=== PATIENT | female | born 1965 | race Caucasian/White ===

== ENCOUNTER 2017-11-23 07:10 | Emergency (ER) | payer SELFPAY ==
[2017-11-23 07:10] VITALS: BP 138/100; PULSE 120; RESP 18; TEMP 36.4; O2SAT 99; BMI 21.0
--- NOTE | 2017-11-23 07:36 | ED.DCSUM_ITS ---
- ER Visit Summary Date of Service: 11/23/17 Chief Complaint: TMJ pain History of Present Illness: The patient is a 52 F with bilateral TMJ pain, worse on the left. This has been going on for several days. She had this before. It was triggered by stress. She is taking Tylenol and Motrin. No other associated symptoms. Physical Examination: Hypertensive otherwise vitals unremarkable. Inspection normal. Alert and oriented. Skin appears unremarkable. She has bilateral TMJ region tenderness to palpation. No trismus. Good range of motion. She does have some shotty anterior cervical lymphadenopathy bilaterally. No meningeal signs. Airway intact. Oropharynx unremarkable. Dentition and gums normal. The remainder of her exam is unremarkable. Test Results: None indicated Emergency Department Course and Treatment: Patient received naproxen and prednisone here. She was given 1 tablet of [place] here. We will not prescribe controlled substances for this. She was given a prescription for naproxen and prednisone. Follow-up with primary care. Treatment Plan: As above Disposition: Discharged Impression: 1. Bilateral TMJ pain This note was generated with Subtextual dictation software. It may contain incorrect words, spelling, and punctuation that were not noted in review of the chart prior to signing ED Disposition - Plan for ED Patient: Chief Complaint: Dental Referrals: Care Physician,No Primary [Primary Care Provider] -
--- NOTE | 2017-11-23 07:36 | ED.DEP ---
ED Disposition - Plan for ED Patient: Chief Complaint: Dental Instructions: ED TMJ Syndrome Prescriptions: Prednisone 40 mg PO DAILY #16 tab Naproxen [Naprosyn] 500 mg PO BID #14 tab Referrals: Tay Henriquez DO [NON CLINICAL AFFILIATE] -
[2017-11-23] MEDS: Naproxen 500 MG Tablet PO (07:52)
[2017-11-23] MEDS: HYDROcodone Bitartrate/Apap 5/325 Tablet PO (07:52)
[2017-11-23] MEDS: predniSONE 20 MG Tablet 40 MG PO (07:52)
== END 2017-11-23 07:54 | disposition home or self-care (01) ==
LOC: ED 07:34
PROVIDERS: Emergency Provider Emergency Medicine
DX: M26.623 Arthralgia of bilateral temporomandibular joint (principal); Z72.0 Tobacco use
CPT/HCPCS: 99283

== ENCOUNTER 2017-12-22 12:04 | Emergency (ER) | payer SELFPAY ==
[2017-12-22 12:05] VITALS: BP 148/96; PULSE 99; RESP 18; TEMP 36.6; O2SAT 99; BMI 20.5
[2017-12-22] MEDS: Tetracaine 0.5% Ophthalmic Bottle 1 DRP LEFT EYE (12:52)
[2017-12-22] MEDS: Fluorescein 1 MG STRIP 1 STRIP LEFT EYE (12:52)
--- NOTE | 2017-12-22 14:13 | ED.VISSUMM ---
- ER Visit Summary Date of Service: 12/22/17 Chief Complaint: Blurred vision after blunt trauma 2 days ago History of Present Illness: The patient is a 52 F who presents after blunt trauma to the left orbit 2 days ago. States she was on the floor. And table tipped and struck her. She reports blurred vision. She complains of photophobia. She denies any double vision. She denies headache, nausea or vomiting. She denies neck pain, paresthesia anesthesia or motor weakness present at time of the injury. She denies muffled hearing or ringing in her ears. She has a Mitchell opening or closing her mouth. She denies symptoms of malocclusion. She denies pain to her nose, swelling or deformity. Physical Examination: There is infra orbital ecchymosis left side. Pupils equal round reactive. Extra muscle intact. Sclerae anicteric. Conjunctive is not injected. There is no subconjunctival hemorrhage. There is no step-off with palpation infraorbital rim. There is no hyperesthesia the infraorbital nerve. There is no evidence of entrapment. There is no CSF otorrhea or rhinorrhea. Negative geiger sign sign or raccoon sign. No hemotympanum. No septal hematoma or deviation. No TMJ tenderness. Trachea midline. No cervical spine tenderness. GCS is 15. Patient is alert and oriented ?3. Motor is 5/5. Sensation is intact. DTRs are symmetric without clonus or Babinski. Cranial nerves II through XII are intact. Finger to nose to finger was performed adequately. Attempt to use slit lamp was difficult because of malfunctioning slit-lamp. There is no cobalt light. There is no hyphema noted anterior chamber. There is no flare or cells. There was no obvious defect of the cornea. Funduscopic exam did not reveal any papilledema. Test Results: Slit-lamp exam limited. Slit-lamp exam did not reveal any significant abnormality Emergency Department Course and Treatment: Visual acuity was 20/100 right 20/200 left 20/100 both. Treatment Plan: Eye exam since patient vision is not normal bilaterally Disposition: Discharge to home Impression: 1. Left periorbital contusion 2. Myopia This note was generated with Tipp24ation software. It may contain incorrect words, spelling, and punctuation that were not noted in review of the chart prior to signing ED Disposition - Plan for ED Patient: Disposition: Home or Assisted Living Chief Complaint: Eye Problem Instructions: ED Contusion Face, Understanding Vision Problems Referrals: Care Physician,No Primary [Primary Care Provider] - Additional Instructions: Your vision in both eyes is abnormal. You should follow-up with an civil draftsman or physical therapist technician for refractory exam since you will need glasses.
--- NOTE | 2017-12-22 14:19 | ED.DCSUM_ITS ---
- ER Visit Summary Date of Service: 12/22/17 Chief Complaint: Blurred vision after blunt trauma 2 days ago History of Present Illness: The patient is a 52 F who presents after blunt trauma to the left orbit 2 days ago. States she was on the floor. And table tipped and struck her. She reports blurred vision. She complains of photophobia. She denies any double vision. She denies headache, nausea or vomiting. She denies neck pain, paresthesia anesthesia or motor weakness present at time of the injury. She denies muffled hearing or ringing in her ears. She has a Mitchell opening or closing her mouth. She denies symptoms of malocclusion. She denies pain to her nose, swelling or deformity. Physical Examination: There is infra orbital ecchymosis left side. Pupils equal round reactive. Extra muscle intact. Sclerae anicteric. Conjunctive is not injected. There is no subconjunctival hemorrhage. There is no step-off with palpation infraorbital rim. There is no hyperesthesia the infraorbital nerve. There is no evidence of entrapment. There is no CSF otorrhea or rhinorrhea. Negative geiger sign sign or raccoon sign. No hemotympanum. No septal hematoma or deviation. No TMJ tenderness. Trachea midline. No cervical spine tenderness. GCS is 15. Patient is alert and oriented ?3. Motor is 5/5. Sensation is intact. DTRs are symmetric without clonus or Babinski. Cranial nerves II through XII are intact. Finger to nose to finger was performed adequately. Attempt to use slit lamp was difficult because of malfunctioning slit-lamp. There is no cobalt light. There is no hyphema noted anterior chamber. There is no flare or cells. There was no obvious defect of the cornea. Funduscopic exam did not reveal any papilledema. Test Results: Slit-lamp exam limited. Slit-lamp exam did not reveal any significant abnormality Emergency Department Course and Treatment: Visual acuity was 20/100 right 20/ 200 left 20/100 both. Treatment Plan: Eye exam since patient vision is not normal bilaterally Disposition: Discharge to home Impression: 1. Left periorbital contusion 2. Myopia This note was generated with [employer]örder[employer] software. It may contain incorrect words, spelling, and punctuation that were not noted in review of the chart prior to signing ED Disposition - Plan for ED Patient: Disposition: Home or Assisted Living Chief Complaint: Eye Problem Instructions: ED Contusion Face, Understanding Vision Problems Referrals: Care Physician,No Primary [Primary Care Provider] - Additional Instructions: Your vision in both eyes is abnormal. You should follow-up with an cotton classer aide or territory sales representative for refractory exam since you will need glasses.
[2017-12-22 14:29] VITALS: PULSE 94; RESP 17; O2SAT 99
== END 2017-12-22 14:31 | disposition home or self-care (01) ==
PROVIDERS: Emergency Provider Emergency Medicine
DX: S00.12XA Contusion of left eyelid and periocular area, initial encounter (principal); H52.12 Myopia, left eye; R40.2410 Glasgow coma scale score 13-15, unspecified time; W22.8XXA Striking against or struck by other objects, initial encounter; Y93.9 Activity, unspecified; Y92.9 Unspecified place or not applicable; Z86.2 Personal history of diseases of the blood and blood-forming organs and certain disorders involving the immune mechanism; Z72.0 Tobacco use
CPT/HCPCS: 99283

== ENCOUNTER 2018-01-14 21:52 | Emergency (ER) | payer SELFPAY ==
[2018-01-14 21:53] VITALS: BP 171/128; PULSE 102; RESP 24; TEMP 36.7; O2SAT 100; BMI 19.5
[2018-01-14] MEDS: oxyCODONE 5 MG Tablet PO (21:59)
[2018-01-14 22:45] VITALS: BP 165/116; PULSE 82; RESP 18; O2SAT 100
--- NOTE | 2018-01-14 22:54 | ED.VISSUMM ---
- ER Visit Summary Date of Service: 01/14/18 Chief Complaint: Injury left ankle. History of Present Illness: The patient is a 52 F who presents with plantar inversion mechanism injury that occurred 6 hours prior to presentation. Her foot went into a hole. She complains of pain over the lateral malleolus. She states weightbearing or movement causes increased pain. She denies paresthesia, anesthesia motor weakness. She has no other complaints. Physical Examination: There is pain palpation over the lateral and medial malleolus. The swelling over the lateral malleolus. There is no laxity with drawer testing. DP pulses palpable. There is no pain the patient the base of the fifth metatarsal. Test Results: Three-view x-ray of the ankle was interpreted by me as negative for fracture, subluxation or dislocation. Emergency Department Course and Treatment: X-ray was obtained to evaluate for fracture. Patient was given a oral tablet of oxycodone for her discomfort. Suspicion was high for fracture. Treatment Plan: Since there is no evidence of fracture Aircast anti-inflammatories. Disposition: Discharged to home Impression: Acute ankle sprain left anterior talofibular ligament This note was generated with Circular dictation software. It may contain incorrect words, spelling, and punctuation that were not noted in review of the chart prior to signing ED Disposition - Plan for ED Patient: Disposition: Home or Assisted Living Chief Complaint: Lower Extremity Injury Instructions: ED Sprain Ankle W X Ray Prescriptions: Naproxen [Naprosyn] 500 mg PO BID #14 tab Referrals: Care Physician,No Primary [Primary Care Provider] - Angelica Becker [NON-STAFF] - 10-14 Days if not better
[2018-01-14 23:31] VITALS: PULSE 75; RESP 18; O2SAT 96
== END 2018-01-14 23:33 | disposition home or self-care (01) ==
PROVIDERS: Emergency Provider Emergency Medicine
DX: S93.492A Sprain of other ligament of left ankle, initial encounter (principal); X50.1XXA Overexertion from prolonged static or awkward postures, initial encounter; Y93.89 Activity, other specified; Y92.9 Unspecified place or not applicable
CPT/HCPCS: 73610; 99285

== ENCOUNTER 2019-06-03 01:11 | Emergency (ER) | payer SELFPAY ==
[2019-06-03 01:12] VITALS: BP 134/82; PULSE 138; RESP 24; TEMP 36.9; O2SAT 92; BMI 18.4
[2019-06-03] MEDS: HYDROcodone Bitartrate/Apap 5/325 Tablet PO (01:24)
--- NOTE | 2019-06-03 01:40 | RAD_ITS ---
HISTORY: PT TWISTED RT KNEE WALKING, PAIN, UNABLE TO STRAIGHTEN LEG, UNABLE TO STAND ADDITIONAL HISTORY: None provided. TECHNIQUE: Right knee 2 views Number of images including paperwork: 2 COMPARISON: None FINDINGS: BONES: No acute fracture. Mineralization appears decreased. JOINTS: No subluxation. SOFT TISSUES: No distinct foreign body. RAD/Knee 1 or 2 Views IMPRESSION: No acute osseous abnormality. at 0254 Reported and signed by: Krissy Kapoor MD Electronically Signed: Krissy Kapoor MD at 2:53 EST Tel , Service support ,
--- NOTE | 2019-06-03 01:50 | ED.VIS.LOWEX ---
History of Present Illness Chief Complaint: Lower Extremity Injury Informant: Patient Occurred: Today Onset: Today Context: Sudden Onset Timing: Continuous Quality of Pain: Sharp Narrative: Patient is a 53-year-old female with history of patella dislocation presenting with sudden onset of right knee pain. Patient states she was trying to stand up when she suddenly had sharp and excruciating pain. She had a deformity of her kneecap. She been unable to walk. Patient is currently staying at [facility]. EMS was called and she was brought to the emergency room. Patient denies any injury or any other complaints. She denies any numbness or tingling. Past Medical History - Allergies and Home Meds Allergies/Adverse Reactions: Allergies ciprofloxacin [From Cipro] Allergy (Verified 01/14/18 21:55) Rash Penicillins Allergy (Verified 01/14/18 21:55) Shortness of breath acetaminophen [From Darvocet-N 100] Adverse Reaction (Verified 01/14/18 21:55) Nausea ibuprofen [From Motrin] Adverse Reaction (Verified 01/14/18 21:55) Nausea propoxyphene napsylate [From Darvocet-N 100] Adverse Reaction (Verified 01/14/18 21:55) Nausea Primary Care Physician: Care Physician,No Primary [Primary Care Provider] - Past Medical History: - - Kidney stones, cystitis, chronic anemia, patella dislocation Surgical History: noncontributory, hysterectomy Smoking Status: Current every day smoker - Family History Maternal Family History: Reports: No pertinent history Paternal Family History: Reports: No pertinent history Review of Systems General: Denies: Chills, Fever, Sweats Eyes: Denies: Visual changes - bilaterally, Diplopia ENT: Denies: Rhinorrhea, Sore throat Cardiovascular: Denies: Chest pain, Palpitations Respiratory: Denies: Dyspnea, Cough, Dyspnea on exertion Gastrointestinal: Denies: Abdominal pain, Nausea, Vomiting Genitourinary: Denies: Dysuria, Hematuria, Frequency Musculoskeletal: Reports: Extremity Pain - Right knee. Denies: Back pain Skin: Denies: Rash, Wounds Neurological: Denies: Headache, Weakness, Numbness Physical Exam Vital Signs/Narrative: Vital Signs Temp Pulse Resp BP Pulse Ox 06/03/19 01:12 98.5 F 138 H 24 H 134/82 H 92 - Extremity Exam Right Pelvis: Negative for: Deformity, Limited ROM Right Hip: Negative for: Deformity, Edema, Limited ROM Right Femur: Negative for: Deformity, Limited ROM Right Knee: Deformity - Lateral displacement of the patella consistent with a dislocation, Limited ROM Right Tib fib: Negative for: Deformity, Edema, Limited ROM Right Ankle: Negative for: Deformity, Edema, Limited ROM Right Foot: Negative for: Deformity, Limited ROM General: Well nourished, Well developed, Cachectic Head: Normocephalic, Atraumatic Eyes: Perrl, EOMI ENT: No Trauma, Moist Mucous Membranes Neck: Nontender, Full ROM Cardiovascular: Regular rate, Regular rhythm, No murmurs Respiratory: No distress, CTA bilaterally, Chest nontender Back: Nontender Skin: Normal color, No rash Neurological: Alert, Oriented x3, Cranial nerves II-XII grossly intact, Normal Strength, Normal Sensation Psychological: Normal affect, Agitated Diagnostic/Tx/Re-eval Clinical Impression(s) from Imaging Studies Knee X-Ray 06/03/19 01:40 IMPRESSION: No acute osseous abnormality. at 0254 Reported and signed by: Krissy Kapoor MD Electronically Signed: Krissy Kapoor MD at 2:53 EST Tel , Service support , - Medical Decision Making Patient is evaluated for spontaneous dislocation of her right patella. She has significant pain. Patient is evaluated immediately at the bedside and the patella is reduced. Patient has improvement of her pain. She is given [place]. X-ray is obtained afterwards which shows no obvious bony defect. Patient is placed in a knee immobilizer. She be given Ortho for outpatient follow-up. She will be started on a course of Tylenol Patient is counseled on signs and symptoms requiring return to the emergency room. Patient verbalizes agreement and understand this plan. Patient discharged home in stable and improved condition. Procedures Procedure(s): Patella reduction. Patient has obvious lateral dislocation of her right patella. While her leg is fully extended the patella is lifted and moved medially with an audible clunk. Patient has improvement of her pain and resolution of patellar deformity. ED Disposition - Plan for ED Patient: Disposition: Home or Assisted Living Diagnosis: Dislocation, patella closed Instructions: Patellar Dislocation / Subluxation Prescriptions: Acetaminophen [Tylenol Extra Strength] 500 mg PO Q4H PRN PRN #20 tab PRN Reason: Pain Score 1-10/10 Prescription Printed Referrals: Hema Lu DO [STAFF PHYSICIAN] - Additional Instructions: Take Tylenol as needed for pain. Please keep the knee immobilizer on until he can follow-up with orthopedics. Return the emergency room with any worsening symptoms.
--- NOTE | 2019-06-03 04:09 | ED.RN ---
pt resting in bed with eyes closed. Per ezequiel Jernigan for pt to sleep here until am.
[2019-06-03 07:13] VITALS: BP 138/64; PULSE 71; RESP 16; O2SAT 98
== END 2019-06-03 07:17 | disposition home or self-care (01) ==
PROVIDERS: Emergency Provider Emergency Medicine
DX: M22.01 Recurrent dislocation of patella, right knee (principal); F17.200 Nicotine dependence, unspecified, uncomplicated
CPT/HCPCS: 27560; 73560; 99285

== ENCOUNTER 2019-06-04 10:20 | Emergency (ER) | payer SELFPAY ==
[2019-06-03 01:12] VITALS: BMI 18.4
[2019-06-04 10:21] VITALS: BP 166/120; PULSE 111; RESP 17; RESP 18; TEMP 36.7; O2SAT 95; O2SAT 97; BMI 17.7
--- NOTE | 2019-06-04 10:32 | ED.VISSUMM ---
- ER Visit Summary Date of Service: 06/04/19 Chief Complaint: Right knee pain History of Present Illness: The patient is a 53 F with right knee pain. She was seen on June 03 for patellar dislocation this was reduced and she was placed in a knee immobilizer. She has continued pain and feels like it is going to dislocated again. Denies any other associated symptoms or weakness or numbness. She is homeless. Physical Examination: Hypertensive but otherwise vitals unremarkable. Heart rate 111. Patient appears uncomfortable but not toxic or in distress. Right knee shows diffuse swelling anteriorly. Diffuse tenderness anterior with light touch. No obvious deformities. Neurovascular intact distally. Skin intact. Test Results: X-rays pending. Emergency Department Course and Treatment: Patient was made n.p.o. Treated for pain and nausea. Will check x-rays. X-rays show an effusion but nothing broken or out of place. Patient will remain in the knee immobilizer. She will be dispensed crutches. Will prescribe some pain medicine and refer her to orthopedics for follow-up. She is standing [facility] the [facility]. Will have social work speak with her about placement in a long term. OARRS negative. Treatment Plan: As above Disposition: Discharge Impression: 1. Right knee effusion This note was generated with [employer] dictation software. It may contain incorrect words, spelling, and punctuation that were not noted in review of the chart prior to signing ED Disposition - Plan for ED Patient: Referrals: Care Physician,No Primary [Primary Care Provider] -
[2019-06-04] MEDS: Morphine 4 MG/ML Syringe IV (10:40)
[2019-06-04] MEDS: Ondansetron 4 MG/2 ML Vial IV (10:40)
--- NOTE | 2019-06-04 10:50 | RAD_ITS ---
STUDY: X-RAY - RIGHT KNEE REASON FOR EXAM: Female, 53 years old. C/O RIGHT KNEE PAIN AND SWELLING, PT REPORTS DISLOCATING THAT KNEE 2 DAYS AGO TECHNIQUE: 2 view(s) of the knee. COMPARISON: Comparison is made with prior examination dated June 03, 2019. FINDINGS: Normal visualized distal femur. Normal visualized proximal tibia and fibula. Normal proximal tibiofibular articulation. Normal medial femorotibial compartment. Normal lateral femorotibial compartment. Normal patellofemoral articulation. Large joint effusion. RAD/Knee 1 or 2 Views IMPRESSION: Large joint effusion. Electronically Signed: En Silva, at 11:09 EST , Service support ,
--- NOTE | 2019-06-04 11:25 | ED.DEP ---
ED Disposition - Plan for ED Patient: Instructions: KNEE PAIN, Uncertain Cause Prescriptions: Oxycodone HCl/Acetaminophen [Percocet 5/325] 1 tab PO Q6H PRN PRN 3 Days #12 tab PRN Reason: Pain Prescription Printed Referrals: Hema Lu DO [STAFF PHYSICIAN] -
--- NOTE | 2019-06-04 12:43 | CM.ED ---
Social Work Consult: Homeless Informant: Dr. Esqueda Met with patient in room. Introduced self as well as social director role. Patient stating to currently be living on the ground. [facility] Patient noted to be self-pay as well. Patient stating to have thought that patient had insurance, Medicaid and to not be sure why patient no longer has insurance. Patient stating to have had no need for patient insurance for the past few years. Patient stating to have been homeless on and off throughout patient's life. Patient stating to have a history of PTSD and stating it has gotten better. This social director broached topic of housing options for patient. Patient aware of [facility] and [facility]. Patient stating that [facility] came to find patient the other day and patient was not there. Patient is to go to [facility] for an intake assessment. Patient stating to believe to be the first person on the waiting list for housing. Patient stating to have last eaten yesterday morning. Educated patient on food pantries and community meals that are served in [facility] as well as provided patient with list of these resources. Patient provided with information on [facility], [address] Card, and Medicaid Application. Patient given pain medication Rx and is stating to not be sure how patient will fill medication due to not having any money or insurance. Attempted to contact [place] Medicaid Hot Line Number to see if patient Medicaid could be reinstated, waiting return phone call at this time. Patient also stating to not have a ride home from the ED. Active listening and support provided. Will continue to follow. Silver BLAKELY, KISHA
[2019-06-04 13:29] VITALS: BP 153/111; PULSE 105; O2SAT 95
--- NOTE | 2019-06-04 13:57 | CM.ED ---
Social Work Medicaid Hotline has not returned phone call. Met with patient in room. Providing patient with Medicaid Hotline number as well as encouraging patient to check with [employer] for prescription assistance. Patient stating understanding. Patient stating to need assistance with transportation back to [address] [address] Telephone call to [facility], transportation set up for 1:45pm. Patient provided to crutches by nursing staff. Active listening and support provided to patient. Patient tearful but voicing understanding and encouraged to follow up with recommended resources. Silver Silva MSW, KISHA
== END 2019-06-04 13:40 | disposition home or self-care (01) ==
LOC: ED 11:26
PROVIDERS: Emergency Provider Emergency Medicine
DX: M25.461 Effusion, right knee (principal); M25.561 Pain in right knee; Z59.0 Homelessness; Z86.2 Personal history of diseases of the blood and blood-forming organs and certain disorders involving the immune mechanism; Z87.442 Personal history of urinary calculi; Z87.440 Personal history of urinary (tract) infections; Z72.0 Tobacco use
CPT/HCPCS: 73560; 96374; 96375; 99285; A4216; J2405

== ENCOUNTER 2020-10-16 18:03 | Emergency (ER) | payer SELFPAY ==
[2020-10-16 18:05] VITALS: BP 109/88; PULSE 117; RESP 17; TEMP 36.9; O2SAT 100; BMI 18.3
--- NOTE | 2020-10-16 18:21 | RAD_ITS ---
STUDY: X-RAY - RIGHT KNEE REASON FOR EXAM: Female, 55 years old. injury TECHNIQUE: 4 view(s) of the knee. COMPARISON: Right knee x-ray dated June 04, 2019 FINDINGS: Healed fracture deformity of the peripheral cortex of the lateral femoral condyle. Mild demineralization of the osseous structures. Normal visualized proximal tibia and fibula. Normal proximal tibiofibular articulation. There is no demonstrated acute fracture. Normal medial femorotibial compartment. Normal lateral femorotibial compartment. Normal patellofemoral articulation. There is no demonstrated joint effusion. The soft tissue structures are unremarkable. RAD/Knee 4 or More Views IMPRESSION: 1. No demonstrated acute process. 2. Old concave fracture deformity of the lateral femoral condyle Electronically Signed: Vicente Carrasco MD at 19:30 EDT , Service support ,
--- NOTE | 2020-10-16 18:21 | ED.VIS.LOWEX ---
HPI History of Present Illness Chief Complaint: Lower Extremity Injury Detail of Chief Complaint: Injury to right knee that occurred 2 days ago Informant: patient Onset/Context/Timing Worsened by: Movement Narrative Narrative: Patient states that she went to the bathroom 2 days ago and fell and injured her right knee. She believes that it may have twisted and then also hit the floor. Initially she was able to bear weight but now having a hard time bearing weight. She denies any other injuries. PFSH PFSH Home Medications naproxen [Naprosyn] 500 mg PO BID #14 tab 10/16/20 [Rx Last Taken Unknown] Allergy/AdvReac Type Severity Reaction Status Date / Time ciprofloxacin [From Cipro] Allergy Rash Verified 06/04/19 10:20 Penicillins Allergy Shortness Verified 06/04/19 10:20 of breath acetaminophen AdvReac Nausea Verified 06/04/19 10:20 [From Darvocet-N 100] ibuprofen [From Motrin] AdvReac Nausea Verified 06/04/19 10:20 propoxyphene napsylate AdvReac Nausea Verified 06/04/19 10:20 [From Darvocet-N 100] Surgical History (Updated 10/16/20 @ 18:07 by Luci Wilde) History of hysterectomy Social History (Updated 10/16/20 @ 18:07 by Luci Wilde) housing: homeless Smoking Status: Current every day smoker ROS [facility] ED Musculoskeletal Musculoskeletal: Reports other Details: Right knee pain EXAM Physical Exam Const Vital Signs: 10/16/20 18:05 Temperature 98.5 F Temperature Source Oral Pulse Rate 117 H Respiratory Rate 17 Blood Pressure 109/88 H Blood Pressure Mean 95 Pulse Ox 100 Oxygen Delivery Method Room Air Positive well nourished and well developed General Appearance ED: well developed and NAD HEENT Reports TM's clear and moist mucous membranes normocephalic and atraumatic; Negative for trauma or tenderness Tympanic Membrane ED: Yes TM's clear Eyes PERRL and EOMs intact bilaterally General Eye ED: Negative for pale conjunctiva or scleral icterus Neck no lymphadenopathy, supple and no JVD General: Negative for tenderness Chest Wall inspection of chest normal and palpation of chest normal Chest: Negative for tenderness Resp normal respiratory effort and clear to auscultation bilaterally Effort and Inspection: Negative for respiratory distress or pain with movement Auscultation: Negative for rhonchi, wheezes or diminished lung sounds Cardio regular rate, regular rhythm, S1 normal heart sound, S2 normal heart sound and no murmurs Peripheral Pulses: pulses 2+ throughout GI normal to inspection, nondistended, normoactive bowel sounds, soft to palpation, non-tender, non-distended and no masses Back/Spine no CVA tenderness and no thoracic nor lumbar tenderness Extremity Negative for normal to inspection Extremity Narrative: Evaluation of the right knee reveals no effusion and no obvious ecchymosis or bruising. Patient has pain with flexion extension at the knee. Neurovascular intact distally. Patient does not tolerate ligamentous exam. General Extremety ED: Negative for edema General Extremity: Negative for edema Neuro oriented x3, CN's II-XII intact bilaterally, no sensory deficits noted and gait normal Sensorium / Orientation: awake, alert, oriented to person, oriented to place and oriented to time Motor Exam: strength 5/5 throughout and strength abnormal Psych mental status grossly normal Skin no rashes or lesions noted and no wounds MDM MDM MDM Narrative Medical decision making narrative: X-rays interpreted by myself and radiology show no acute fractures. At this point I cannot rule out ligamentous injury. Patient will be placed in a knee immobilizer and given crutches. She will be referred to orthopedics for follow-up. Radiography Diagnostic Testing: Radiology Impression Knee X-Ray 10/16/20 18:21 IMPRESSION: 1. No demonstrated acute process. 2. Old concave fracture deformity of the lateral femoral condyle Electronically Signed: Vicente Carrasco MD at 19:30 EDT , Service support , For strays of the right knee obtained showed no evidence for fractures. Radiology in agreement. Discharge Plan Triage Chief Complaint: Lower Extremity Injury ED Provider: Neema Farmer Dx/Rx/DC Orders Clinical Impression: History of knee sprain Instructions: ED Knee Sprain Prescriptions: New naproxen [Naprosyn] 500 mg tablet 500 mg PO BID Qty: 14 RF: 0 Primary Care Provider: Care Physician,No Primary Referrals: Hema Lu DO [STAFF PHYSICIAN] - 3-5 Days Care Physician,No Primary [Primary Care Provider] - Disposition Disposition: Home, self care
[2020-10-16] MEDS: Acetaminophen 325 MG Tablet 650 MG PO (21:16)
== END 2020-10-16 21:18 | disposition home or self-care (01) ==
PROVIDERS: Emergency Provider Emergency Medicine
DX: S83.91XA Sprain of unspecified site of right knee, initial encounter (principal); F17.200 Nicotine dependence, unspecified, uncomplicated; X50.1XXA Overexertion from prolonged static or awkward postures, initial encounter
CPT/HCPCS: 73564; 99285

== ENCOUNTER 2021-01-05 14:07 | Emergency (ER) | payer SELFPAY ==
[2021-01-05 14:09] VITALS: BP 182/114; PULSE 107; RESP 14; TEMP 36.8; O2SAT 98; BMI 17.1
[2021-01-05] MEDS: Lidocaine 1% (20 ml mdv) 20 ML Vial INFILT (15:42)
[2021-01-05] MEDS: Smz/Tmp Ds Tablet 1 TABLET PO (15:43)
--- NOTE | 2021-01-05 16:47 | EDS_ITS ---
HPI History of Present Illness Chief Complaint: Bite Informant: patient Onset/Context/Timing Context: Gradual Onset Timing: Continuous Quality: sore Location: chest wall Current Severity: Moderate Maximum Severity: Moderate Worsened by: palpation Relieved by: leaving alone Associated Symptoms Associated Symptoms: subj fever Narrative Narrative: Patient states she has a tender swollen area on her chest wall and between her breasts for the past month. In the last couple days has started draining small amounts purulent material. She states she has had subjective fevers that she had last night. She denies having had these before. No obvious onset but she is afraid it could be a spider bite because she was out in the hunt a month ago. It started gradually, there is no sudden onset sensation consistent with a bite. [facility] Medical History (Updated 01/05/21 @ 17:[address] Alex Burden MD) Chronic anemia Endometriosis History of kidney stones Home Medications doxycycline monohydrate 100 mg PO BID #20 capsule 01/05/21 [Rx Last Taken Unknown] Allergy/AdvReac Type Severity Reaction Status Date / Time ciprofloxacin [From Cipro] Allergy Rash Verified 01/05/21 14:09 Penicillins Allergy Shortness Verified 01/05/21 14:09 of breath acetaminophen AdvReac Nausea Verified 01/05/21 14:09 [From Darvocet-N 100] ibuprofen [From Motrin] AdvReac Nausea Verified 01/05/21 14:09 propoxyphene napsylate AdvReac Nausea Verified 01/05/21 14:09 [From Darvocet-N 100] Surgical History History of hysterectomy Social History housing: homeless Smoking Status: Current every day smoker tobacco type: cigarettes ROS ROS ED Constitutional Constitutional ED: Denies chills or fever(s) Cardiovascular Cardiovascular: Reports as per HPI and other Details: Chest wall pain Respiratory/Chest Respiratory/Chest: Denies cough or dyspnea Musculoskeletal Musculoskeletal: Denies extremity pain or neck pain Integumentary Reports as per HPI and abscess; Denies Abrasions, rash or wounds Neurologic Neurologic: Denies paresthesias or weakness EXAM Physical Exam Const Vital Signs: 01/05/21 14:09 Temperature 98.3 F Temperature Source Temporal Pulse Rate 107 H Respiratory Rate 14 Blood Pressure 182/114 H Blood Pressure Mean 136 Pulse Ox 98 Oxygen Delivery Method Room Air Positive well nourished and well developed General Appearance ED: well developed and NAD Neck full ROM and supple Back/Spine normal ROM and normal to inspection Extremity normal to inspection, full ROM and no pedal edema Neuro oriented x3, no focal motor deficits and no sensory deficits noted Sensorium / Orientation: alert Psych thought process normal Mood & Affect: anxious Skin no wounds Skin Narrative: 2 cm pointing cutaneous abscess without surrounding cellulitis anterior chest wall not involving her breast. No spontaneous discharge depressible at this time but it is clearly an abscess that contains purulent material. Rashes: no rashes MDM MDM MDM Narrative Medical decision making narrative: Prior to performing the I&D, while the patient was waiting for set up at staff to be ready, she was given a Bactrim and subsequently 30 or 40 minutes later, developed pruritic urticaria on her arms without any other dangerous symptoms or changes in vital signs. She was treated with Benadryl and we added this to her allergy list, she had not had sulfa medication before that she knew of. Therefore to better cover MRSA, she will be given and prescribe doxycycline. The cavity was small and not big enough to pack, she was given follow-up and we discussed reasons to return. Reassured patient this was unlikely to be a spider bite and more likely to be a spontaneous bacterial abscess. Procedures Other Procedures Procedure(s): Simple incision and drainage abscess chest wall: Isopropanol prep and local anesthesia with 2 cc 1% lidocaine plain, followed by prep with chlorhexidine and incision over the top of the affected area with a #10 blade, only small amount of purulent material expressed. Deloculated the abscess cavity which was small to ensure no untreated area. Cleansed and dressed with bacitracin, no complications. Discharge Plan Triage Chief Complaint: Bite ED Provider: Alex Burden Dx/Rx/DC Orders Clinical Impression: Cutaneous abscess of chest wall Instructions: ED Abscess Incision And Drainage Prescriptions: New doxycycline monohydrate 100 MG capsule 100 mg PO BID Qty: 20 RF: 0 Primary Care Provider: Care Physician,No Primary Referrals: Angelica Becker [NON-STAFF] - 3-5 Days if not improving Care Physician,No Primary [Primary Care Provider] - Disposition Disposition: Home, Self Care
[2021-01-05] MEDS: DiphenhydrAMINE 25 MG Capsule 50 MG PO (16:49)
[2021-01-05] MEDS: Doxycycline 100 MG CAPSULE PO (17:11)
== END 2021-01-05 17:15 | disposition home or self-care (01) ==
PROVIDERS: Emergency Provider Emergency Medicine
DX: L02.213 Cutaneous abscess of chest wall (principal); F17.210 Nicotine dependence, cigarettes, uncomplicated; Z87.442 Personal history of urinary calculi
CPT/HCPCS: 99283

== ENCOUNTER 2021-03-16 09:03 | Emergency (ER) | payer SELFPAY ==
[2021-03-16 09:07] VITALS: BP 103/83; PULSE 81; RESP 16; TEMP 36.2; O2SAT 97; BMI 17.6
--- NOTE | 2021-03-16 09:28 | ED.VIS.FALL ---
HPI HPI - Fall History of Present Illness Chief Complaint: Fall Informant: patient Occured/Mechanism Occurred: Today and Hours Pain/Injury Pain Location: lower extremity Quality of Pain: Sharp Current Severity: Moderate Maximum Severity: Moderate Associated Symptoms Associated Symptoms: Positive for Inability to ambulate; Negative for Parasthesias, Weakness, Loss of function, Loss of consciousness and Amnesia Narrative Narrative: 55-year-old female tripped today over sticks while she was taking a walk fell on the sidewalk injuring her right hip area. Said she did not think she can walk on it. She is brought in by ambulance. She denies hitting her head. No LOC. Prior to the fall she states she felt fine. Prior similar symptoms: No Recent Illness/Hospitalization: No PFSH PFSH Medical History Chronic anemia Endometriosis History of kidney stones Home Medications doxycycline monohydrate 100 mg PO BID #20 capsule 01/05/21 [Rx Last Taken Unknown] Allergy/AdvReac Type Severity Reaction Status Date / Time ciprofloxacin [From Cipro] Allergy Rash Verified 01/05/21 14:09 Penicillins Allergy Shortness Verified 01/05/21 14:09 of breath sulfamethoxazole Allergy Hives Verified 01/05/21 17:12 [From Bactrim] trimethoprim [From Bactrim] Allergy Hives Verified 01/05/21 17:12 acetaminophen AdvReac Nausea Verified 01/05/21 14:09 [From Darvocet-N 100] ibuprofen [From Motrin] AdvReac Nausea Verified 01/05/21 14:09 propoxyphene napsylate AdvReac Nausea Verified 01/05/21 14:09 [From Darvocet-N 100] Surgical History History of hysterectomy Social History housing: homeless Smoking Status: Current every day smoker tobacco type: cigarettes ROS ROS ED ROS Narrative Denies recent illness. Review of Systems ROS Unobtainable: Denies due to encephalopathy Constitutional Constitutional ED: Denies chills or fever(s) Eyes Eyes: Denies change in vision ENT ENT ED: Denies ear pain or sore throat Cardiovascular Cardiovascular: Denies chest pain Respiratory/Chest Respiratory/Chest: Denies cough or dyspnea Gastrointestinal Gastrointestinal: Denies abdominal pain, diarrhea, nausea or vomiting Genitourinary Genitourinary ED: Denies dysuria Musculoskeletal Musculoskeletal: Denies myalgias Integumentary Denies rash Neurologic Neurologic: Denies headache(s) Psychiatric Psychiatric: Denies depression Endocrine Endocrinology: Denies polyuria Hematologic/Lymphatic Hematologic/Lymphatic: Denies easy bruising Allergic/Immunologic Allergic/Immunologic ED: Denies urticaria EXAM Physical Exam Narrative Exam Narrative: Middle-aged female lying in bed. Vital signs stable afebrile. HEENT exam unremarkable atraumatic. Neck nontender. Trachea midline. Lungs are clear equal symmetrical bilaterally. Heart regular rate and rhythm rate about 80. Chest wall nontender. Abdomen soft nontender. Pelvic girdle appears to be intact she has pain in her right upper hip and right iliac crest region. There is no ecchymosis or bruising. She does not want me to passively flex or extend her right hip due to pain. She has a brace on her right knee which is chronic she has dorsi and plantar flexion of right ankle and foot. Left lower extremity and hip are nontender. Dorsi plantarflexion intact. Upper extremities are nontender with normal president & founder strength. Neurologically she is awake alert. Const Vital Signs: 03/16/21 09:07 03/16/21 09:18 03/16/21 11:59 Temperature 97.2 F L Temperature Source Oral Pulse Rate 81 71 Respiratory Rate 16 Respiratory Effort Normal Non-Labored Respiratory Depth Normal Respiratory Pattern Normal Blood Pressure 103/83 H 172/120 H Blood Pressure Mean 89 137 Pulse Ox 97 94 Oxygen Delivery Method Room Air Room Air Positive well nourished and well developed; Negative for obese, cachectic, contractures or unkempt General Appearance ED: well developed and NAD; Negative for unkempt, cachectic or contractures Nutritional Appearance: Negative for cachectic or obese HEENT Reports normocephalic atraumatic; Negative for trauma or tenderness Eyes PERRL and EOMs intact bilaterally Neck full ROM, no lymphadenopathy and supple General: Negative for tenderness Chest Wall inspection of chest normal and palpation of chest normal Resp normal respiratory effort, no retractions and clear to auscultation bilaterally Auscultation: Negative for rales, rhonchi or wheezes Cardio regular rate, regular rhythm, S1 normal heart sound, S2 normal heart sound and no murmurs GI non-tender, non-distended and no masses Auscultation: normoactive bowel sounds Palpation: soft; Negative for guarding or rebound tenderness present Back/Spine no CVA tenderness General Back: Negative for CVA tenderness Cervical Spine: Negative for cervical spine tenderness Thoracic Spine / Upper Back: Negative for thoracic spinal tenderness Lumbar Spine / Lower Back: paraspinal muscle tenderness; Negative for lumbar spinal tenderness Extremity Extremity Narrative: Pain on palpation to the right hip and iliac crest region. Limited range of motion of the right hip due to pain. No shortening or rotation noted. Neuro oriented x3 Sensorium / Orientation: alert, oriented to person, oriented to place and oriented to time; Negative for orientation impaired, confused, lethargic or stuporous Psych mental status grossly normal Appearance: Negative for unkempt Skin Lesions: no lesions Rashes: no rashes MDM MDM MDM Narrative Medical decision making narrative: Middle-aged female fall complaining of right hip and low back pain on the right. Does not want to move her right hip. To be treated IV morphine and Zofran. X-rays of the right hip and pelvis are being obtained. Repeat exam patient is doing well at 1:03 PM. We will get her out make sure she can ambulate she will be discharged home. Appears to be just a bruise. Ice to the area. Tylenol Motrin for pain. Radiography Diagnostic Testing: Clinical Impression(s) from Imaging Studies Hip/Pelvis X-Ray 03/16/21 10:30 IMPRESSION: Degenerative changes of the symphysis pubis. Electronically Signed: En Silva MD at 11:13 EDT , Service support , Pelvis and right hip x-ray shows no acute abnormality. No fracture or dislocation. 3 views interpreted by myself and the radiologist. Chronic changes. Discharge Plan Triage Chief Complaint: Fall ED Provider: Angel Thomas Dx/Rx/DC Orders Clinical Impression: Contusion of hip Instructions: ED Hip Contusion Prescriptions: No Action doxycycline monohydrate 100 MG capsule 100 mg PO BID Qty: 20 RF: 0 Primary Care Provider: Care Physician,No Primary Referrals: Elliot Rangel MD [STAFF PHYSICIAN] - 3-5 Days if not improving Care Physician,No Primary [Primary Care Provider] - Activity Restrictions/Additional Instructions: Ice your hip and back when you fell. Motrin and Tylenol for pain. Follow-up if not improving. Disposition Disposition: Home, Self Care
[2021-03-16] MEDS: morphine 8 MG/ML Syringe 6 MG IV (10:16)
[2021-03-16] MEDS: Ondansetron 4 MG/2 ML Vial IV (10:16)
--- NOTE | 2021-03-16 10:30 | RAD_ITS ---
STUDY: X-RAY - PELVIS AND RIGHT HIP REASON FOR EXAM: Female, 55 years old. Right-sided pelvic pain following a fall. TECHNIQUE: 3 views of the pelvis and hip. COMPARISON: None. FINDINGS: There is a non-specific bowel gas pattern. Normal visualized soft tissue structures. Normal bilateral iliac wings, sacroiliac joints and visualized sacrum. Normal bilateral superior and inferior pubic rami. There is narrowing with sclerosis of the pubic symphysis. Normal bilateral ischial tuberosities. Normal visualized femoral head. Normal acetabulum. Normal hip joint. RAD/HIP, UNI W/ Pelvis 2-3 Views IMPRESSION: Degenerative changes of the symphysis pubis. Electronically Signed: En Silva MD at 11:13 EDT , Service support ,
[2021-03-16 11:59] VITALS: BP 172/120; PULSE 71; O2SAT 94
--- NOTE | 2021-03-16 13:52 | ED.RN ---
1315- attempt #1 at ambulating patient was unsuccessful. Patient in tears, unable to lift right leg off bed by self. Denied help due to not having help outside facility. 1330- attempt #2 at ambulating patient was again unsuccessful. Tried to get patient to sit at side of bed and lift up into standing position, patient again tearful and says I cannot do this, I can't get my leg off the bed and you're just going to have to tell the doctor I can't right now. Dr. Thomas notified.
--- NOTE | 2021-03-16 14:12 | ED.RN ---
1400- attempt #3 at ambulating, again unsuccessful. Patient able to lift hips off bed but denies ability to lift right leg off bed. States I know you think I can do this but I absolutely cannot, something is wrong reassured patient of xray findings and that we are here to assist her to ambulate in order to be discharged. Failed attempt, again spoke with Dr. Thomas, CT scan to be ordered.
--- NOTE | 2021-03-16 14:14 | CT_ITS ---
STUDY: CT SCAN HEAD RIGHT REASON FOR EXAM: Female, 55 years old. pain. Trauma. Unable to walk RADIATION DOSAGE (If Supplied By Facility): CTDIvol = ( 12.06 ) mGy, DLP = ( 370.41 ) mGycm. Individualized dose optimization techniques were used for this CT.? TECHNIQUE: Multiple axial tomographic images of the right hip joint were obtained without intravenous contrast administration. Coronal and sagittal reconstruction was obtained as well. COMPARISON: Comparison is made with prior right hip x-ray. FINDINGS: There is no evidence of fracture or dislocation. No soft tissue mass is seen. Mild degree of increased markings in the overlying subcutaneous fat most likely secondary to soft tissue injury. CT/Extremity Lower without Contra IMPRESSION: No bone abnormality is seen. Mild degree of soft tissue edema. Electronically Signed: En Silva MD at 15:06 EDT , Service support ,
[2021-03-16 15:12] VITALS: PULSE 20
[2021-03-16] MEDS: Ibuprofen 600 MG Tablet PO (15:38)
--- NOTE | 2021-03-16 16:12 | ED.RN ---
1550- diagnosis was given by , patient was again requested to ambulate prior to discharge for the contusion. Patient slow to get dressed but did get out of bed without assistance.
== END 2021-03-16 16:18 | disposition home or self-care (01) ==
PROVIDERS: Emergency Provider Emergency Medicine
DX: S70.01XA Contusion of right hip, initial encounter (principal); F17.210 Nicotine dependence, cigarettes, uncomplicated; W01.0XXA Fall on same level from slipping, tripping and stumbling without subsequent striking against object, initial encounter; Z87.442 Personal history of urinary calculi
CPT/HCPCS: 73502; 73700; 96374; 96375; 99285; A4216; J2405

== ENCOUNTER → 2021-05-14 14:56 | Outpatient (CLI) | payer MEDICAID, SELFPAY ==
--- NOTE | 2021-05-14 15:07 | RAD_ITS ---
History: LUMBAGO W/SCIATICA Lumbar spine 3 views: Findings: Bony structures appear osteoporotic. No fracture or subluxation. No significant disc space narrowing. Facet arthropathy noted at L5-S1. Pedicles and posterior elements appear intact. IMPRESSION: L5-S1 facet arthropathy. Osteoporosis. at 1655 Reported and signed by: Herbie Perez MD Electronically Signed: Herbie Perez MD at 16:54 EST Tel , Service support , RAD/Lumbar Spine 2 or 3 Views
== END ==
PROVIDERS: Referring Provider Nurse Practitioner Adult Health; Visit Provider Nurse Practitioner Adult Health
DX: M54.41 Lumbago with sciatica, right side (principal)
CPT/HCPCS: 72100

== ENCOUNTER → 2021-05-15 09:07 | Outpatient (CLI) | payer MEDICAID, SELFPAY ==
[2021-05-15 10:04] LABS: Absolute Neutrophil Count 14.9 X10^3/uL (2.0-7.7); Basophil# 0.04 X10^3/uL; Basophil% 0.2 % (0-1); Eosinophil# 0.07 X10^3/uL; Eosinophils% 0.4 % (0-5); Hemoglobin 11.2 g/dL (12.0-15.0); Lymphocyte % 6.3 % (19-41); Mean Corp Hgb Conc 31.1 g/dL (32-36); Mean Corpuscular Hgb 30.5 pg (27.0-32.0); Mean Corpuscular Volume 98.1 fL (81-99); Mean Platelet Vol. 9.8 fl (6.2-12.0); Monocyte# 1.13 X10^3/uL; Monocyte% 6.5 % (0-10); NRBC Flagged by Analyzer 0 % (0-5); Neutrophil # 14.86 X10^3/uL (2.7-7.7); Neutrophil % 85.8 % (47-70); Platelet Count 416 K/mm3 (150-450); RBC Distribution Width CV 13.8 % (11.6-14.6); RBC Distribution Width SD 50.5 fl (35.1-43.9); Red Blood Count 3.67 M/mm3 (4.2-5.4); White Blood Count 17.3 K/mm3 (4.4-11.0)
[2021-05-15 10:41] LABS: ALB/GLOB Ratio 0.5 RATIO (0.9-2.4); AST(SGOT) 18 U/L (15-37); Alanine Aminotransfer ALT/SGPT 24 U/L (13-56); Albumin, Serum 2.5 g/dL (3.2-5.0); Alkaline Phosphatase 120 U/L (45-117); Anion Gap 6 (5-15); BUN 27 mg/dL (7-18); BUN/Creat Ratio 17.9 RATIO (10-20); Calcium,Total 8.8 mg/dL (8.5-10.1); Chloride 112 mmol/L (98-107); Creatinine, Serum 1.51 mg/dL (0.55-1.02); EST Glomerular Filtration Rate 38 mL/min (>60); Est Glom Filt Rate - Afr Amer 46 mL/min (>60); Globulin 4.8 g/dL (2.2-4.2); Glucose 76 mg/dL (74-106); Protein, Total 7.3 g/dL (6.4-8.2); Sodium Level 142 mmol/L (136-145); Thyroid Stim Hormone (TSH) 2.07 uIU/mL (0.358-3.74)
== END ==
DX: R60.0 Localized edema (principal)
CPT/HCPCS: 36415; 80053; 84443; 85025

== ENCOUNTER 2021-09-15 02:51 | Emergency (ER) | payer MEDICAID, SELFPAY ==
[2021-09-15] VITALS (11 sets, daily range): BP systolic 128–205; BP diastolic 82–142; PULSE 90–102; RESP 15–20; TEMP 35.7–36.8; O2SAT 93–99; BMI 38.7; BMI 17.4
--- NOTE | 2021-09-15 02:58 | EKG12_ITS ---
Test Reason : DYSRHYTHMIA Blood Pressure : / mmHG Vent. Rate : 096 BPM Atrial Rate : 096 BPM P-R Int : 118 ms QRS Dur : 064 ms QT Int : 366 ms P-R-T Axes : 082 076 081 degrees QTc Int : 462 ms Normal sinus rhythm Nonspecific ST abnormality Abnormal ECG Confirmed by JESSICA HERNANDEZ, SELENE ([id number]), editorial director STEPHANIE BRITO ([id number]) on 09/15/2021 9:04:07 AM Referred By: MINH Confirmed By:SELENE LOPEZ MD
--- NOTE | 2021-09-15 02:58 | CT_ITS ---
EXAM: CT Head Stroke Protocol W/O Contrast Injection HISTORY: Neuro deficit, acute, stroke suspected TECHNIQUE: Routine protocol CT Head. IV Contrast: None. RADIATION DOSAGE (If Supplied By Facility): CTDIvol = ( 44.99 ) mGy, DLP = ( 812.98 ) mGycm Individualized dose optimization techniques were used for this CT. COMPARISON: None. LIMITATIONS: None. FINDINGS: BRAIN: Large acute intraparenchymal hemorrhage centered in the hema with extension to the cerebellar peduncles, measures 3 x 1.7 cm maximal transverse dimension. Mild surrounding decreased attenuation edema. Old lacunar infarct in the right thalamus. VENTRICLES AND SULCI: Questionable minimal hemorrhage in the fourth ventricle adjacent to the pontine hemorrhage. The ventricles are prominent size, not significantly dilated. EXTRA-AXIAL: No hemorrhage, fluid collection, or mass. CALVARIUM / SKULL BASE: Unremarkable. FACE/SINUSES: Mucosal thickening in the left maxillary sinus.. SOFT TISSUES: Unremarkable. IMPRESSION: Acute intraparenchymal hemorrhage centrally in the hema with probable extension with tiny intraventricular hemorrhage in the fourth ventricle. Borderline ventricular size without definite hydrocephalus. Follow-up recommended. I discussed the findings with Dr. Thomas at 12:13 AM PT. N.B. : The above Results were Read Back by Yas Jerry MD to Dr. William MD, and understanding confirmed on 09/15/2021 03:14:04 (ET). Electronically Signed: Yas Jerry MD at 3:18 EDT , CT/STROKE Brain/Head without Cont
--- NOTE | 2021-09-15 02:58 | RAD_ITS ---
STUDY: X-RAY CHEST REASON FOR EXAM: Female, 55 years old. Neuro deficit, acute, stroke suspected TECHNIQUE: AP portable. 3:38 AM. COMPARISON: 07/23/2014. FINDINGS: LUNGS: No consolidation. Right paratracheal soft tissue may be vascular structures exaggerated by degree of rotation but other process such as consolidation, nodule or adenopathy not excluded. No pneumothorax. MEDIASTINUM: Unremarkable. CARDIAC SILHOUETTE: Not enlarged. BONES AND SOFT TISSUES: No acute abnormalities. RAD/Chest 1 View IMPRESSION: Right paratracheal soft tissue may be vascular but cannot exclude other process. Correlation with CT chest may be helpful as clinically indicated. No infiltrates. Electronically Signed: Yas Jerry MD at 4:05 EDT ,
--- NOTE | 2021-09-15 03:02 | ED.VIS.STROK ---
HPI History of Present Illness Chief Complaint: Neuro S/Sx Informant: patient and EMS Onset/Context/Timing Onset: Today and Hours Timing: Continuous Quality and Location: Positive for Right Facial Droop and Right Face Paresthesia Current Severity: Moderate Maximum Severity: Moderate Associated Symptoms Associated Symptoms: Positive for Headache; Negative for Nausea, Vomiting and Chest Pain Narrative Narrative: 55-year-old female at the [facility]. When she awoke tonight she had a right-sided facial droop, right-sided facial numbness and weakness in her right leg. She denies any history of stroke or TIA. She is a limited informant. Prior similar symptoms: No Recent Illness/Hospitalization: No PFSH PFS Medical History Chronic anemia Endometriosis History of kidney stones Home Medications NK 09/15/21 [History Last Taken Unknown] Allergy/AdvReac Type Severity Reaction Status Date / Time ciprofloxacin [From Cipro] Allergy Rash Verified 09/15/21 02:59 Penicillins Allergy Shortness Verified 09/15/21 02:59 of breath sulfamethoxazole Allergy Hives Verified 09/15/21 02:59 [From Bactrim] trimethoprim [From Bactrim] Allergy Hives Verified 09/15/21 02:59 acetaminophen AdvReac Nausea Verified 09/15/21 02:59 [From Darvocet-N 100] ibuprofen [From Motrin] AdvReac Nausea Verified 09/15/21 02:59 propoxyphene napsylate AdvReac Nausea Verified 09/15/21 02:59 [From Darvocet-N 100] Surgical History History of hysterectomy Social History housing: homeless Smoking Status: Current every day smoker tobacco type: cigarettes ROS ROS ED ROS Narrative Headache. Right-sided weakness of the leg. Review of Systems ROS Unobtainable: Denies due to encephalopathy Constitutional Constitutional ED: Denies fever(s) Eyes Eyes: Denies change in vision ENT ENT ED: Denies ear pain Cardiovascular Cardiovascular: Denies chest pain Respiratory/Chest Respiratory/Chest: Denies dyspnea Gastrointestinal Gastrointestinal: Denies abdominal pain Genitourinary Genitourinary ED: Denies dysuria Musculoskeletal Musculoskeletal: Denies myalgias Integumentary Denies rash Neurologic Neurologic: Reports headache(s) Psychiatric Psychiatric: Denies depression Endocrine Endocrinology: Denies polyuria Hematologic/Lymphatic Hematologic/Lymphatic: Denies easy bruising Allergic/Immunologic Allergic/Immunologic ED: Denies urticaria EXAM Physical Exam Narrative Exam Narrative: 41-year-old female initial blood pressure 204/142. Afebrile. Pulse ox 90% on room air no hypoxia. H EENT exam right facial droop. Pupils round reactive light. She is able to talk. Tongue midline. Neck nontender no JVD. Lungs clear to auscultation bilaterally. Heart regular rhythm no murmur. Rate about 90. Chest wall nontender. Abdomen soft nontender. Moving all 4 extremities. She has weakness in her right leg. She has a drift in her right leg. On neurologic exam. She has a right facial droop. She has slurred speech. She has decreased strength and drift out of her right leg. NIH score is approximately a 6. Const Vital Signs: 09/15/21 02:52 09/15/21 02:57 09/15/21 02:58 Temperature 96.3 F L 97.2 F L Temperature Source Temporal Temporal Pulse Rate 97 90 Respiratory Rate 20 H 19 H Blood Pressure 204/142 H 205/123 H Blood Pressure Mean 162 150 Blood Pressure Location Pulse Ox 98 99 Oxygen Delivery Method Room Air Room Air 09/15/21 03:02 09/15/21 03:18 09/15/21 03:22 Temperature 98.2 F Temperature Source Temporal Pulse Rate 95 93 Respiratory Rate 19 H 16 Blood Pressure 196/124 H 192/120 H Blood Pressure Mean 148 144 Blood Pressure Location Left Arm Left Arm Pulse Ox 98 97 Oxygen Delivery Method Room Air 09/15/21 03:27 09/15/21 03:28 09/15/21 03:35 Temperature 98.2 F 97.9 F Temperature Source Temporal Temporal Pulse Rate 102 H 100 99 Respiratory Rate 17 16 15 Blood Pressure 165/112 H 160/103 H 153/101 H Blood Pressure Mean 129 122 118 Blood Pressure Location Left Arm Pulse Ox 95 98 98 Oxygen Delivery Method Room Air Room Air 09/15/21 03:45 09/15/21 04:00 Temperature 97.9 F Temperature Source Temporal Pulse Rate 90 98 Respiratory Rate 17 17 Blood Pressure 138/94 H 129/87 H Blood Pressure Mean 108 101 Blood Pressure Location Pulse Ox 95 96 Oxygen Delivery Method Room Air Room Air Positive well nourished and well developed; Negative for obese, cachectic, contractures or unkempt General Appearance ED: well developed; Negative for unkempt, cachectic, contractures or NAD Nutritional Appearance: Negative for cachectic or obese HEENT Reports moist mucous membranes atraumatic; Negative for trauma Eyes PERRL and EOMs intact bilaterally General Eye ED: Negative for pale conjunctiva or scleral icterus Neck no lymphadenopathy, supple and no JVD General: Negative for tenderness Chest Wall inspection of chest normal and palpation of chest normal Resp normal respiratory effort and clear to auscultation bilaterally Auscultation: Negative for rales or rhonchi Cardio no murmurs Rate: regular rate Rhythm: regular rhythm Heart Sounds: S1 normal and S2 normal GI normal to inspection, nondistended, normoactive bowel sounds, soft to palpation, non-tender, non-distended and no masses Inspection: Negative for abdominal distention Auscultation: normoactive bowel sounds Palpation: Negative for tender, guarding or rebound tenderness present Back/Spine no CVA tenderness General Back: Negative for CVA tenderness Cervical Spine: Negative for cervical spine tenderness Thoracic Spine / Upper Back: Negative for thoracic spinal tenderness Extremity normal to inspection Extremity Narrative: Weakness right leg. General Extremety ED: Negative for deformity, edema or tenderness General Extremity: Negative for deformity or edema Neuro oriented x3 and No no sensory deficits noted Neuro Narrative: Right facial droop. Slurred speech. Right leg weakness. Right leg drift. Sensorium / Orientation: alert, oriented to person, oriented to place and oriented to time; Negative for orientation impaired, confused, lethargic or stuporous Speech: Negative for speech normal Gait (Neuro): Negative for normal gait Motor Exam: strength abnormal; Negative for strength 5/5 throughout Psych mental status grossly normal Appearance: Negative for unkempt Mood & Affect: Negative for depressed or tearful Skin no wounds General Skin Exam: Negative for jaundice Lesions: no lesions Rashes: no rashes and No rashes noted STROKE Vital Signs/Narrative: Vital Signs Temp Pulse Resp BP Pulse Ox 09/15/21 04:00 97.9 F 98 17 129/87 H 96 09/15/21 03:45 90 17 138/94 H 95 09/15/21 03:35 97.9 F 99 15 153/101 H 98 09/15/21 03:28 98.2 F 100 16 160/103 H 98 09/15/21 03:27 102 H 17 165/112 H 95 09/15/21 03:22 93 16 192/120 H 97 09/15/21 03:18 98.2 F 95 19 H 196/124 H 98 09/15/21 02:58 90 19 H 205/123 H 99 09/15/21 02:57 97.2 F L 09/15/21 02:52 96.3 F L 97 20 H 204/142 H 98 Inital Vital Signs reviewed: Yes NIHSS Initial: 1a Level of Consciousness: 0 1b LOC Questions (Score 2 if aphasic/stupor): 0 1c LOC Commands (Only score 1st attempt): 0 2 Best Gaze (If aphasic, use reflexive mvmts.): 0 3 Visual: 0 4 Facial Palsy: 1 5 Motor Arm Right (UN = amputation/fusion): 0 5 Motor Arm Left: 0 6 Motor Leg Right: 2 6 Motor Leg Left: 0 7 Limb ataxia (Only + if out of proportion): 2 8 Sensory (Aphasia/stupor=0 or 1, coma=2): 0 9 Best Language: 1 10 Dysarthria (mute, coma=2, intubated=UN): 0 11 Extinction and Inattention (only scored if +): 0 Total Score: 6 MDM MDM MDM Narrative Medical decision making narrative: 55-year-old female presents presents with strokelike symptoms with a significantly elevated blood pressure. 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 Obviously due to the intracranial bleed the patient is not a tPA candidate. She was a stroke team on arrival. I am already speaking to the transfer line and physicians at [facility] for transfer. She was started on a Cardene drip due to her hypertensive emergency and intracranial bleed. Multiple repeat exams the last set 3:45 AM her current pressure is 138/94. Neurologic exam is unchanged. She is awake and alert. Due to weather conditions are unable to fly at this time a mobile intensive care unit will take the patient to [facility] who is accepted her in transfer. Lab Data Attestation: I reviewed the patient's lab results. Lab results narrative: CBC shows a white count of 13.4. H&H of 13 and 41. Platelets 280. PT is 13. INR 1.1. PTT 31. CAT scan shows a moderate to large pontine hemorrhage. Read by the radiologist and reviewed by me. Labs: Laboratory Results - last 24 hr 09/15/21 09/15/21 03:10 03:10 WBC 13.4 H RBC 4.24 Hgb 13.4 Hct 41.1 MCV 96.9 MCH 31.6 MCHC 32.6 RDW Std Deviation 50.0 H RDW Coeff of Aidan 14.0 Plt Count 280 MPV 10.2 Immature Gran % (Auto) 2.800 H Neut % (Auto) 81.5 H Lymph % (Auto) 9.7 L [place] % (Auto) 5.3 Eos % (Auto) 0.2 Baso % (Auto) 0.5 Absolute Neuts (auto) 10.9 H Absolute Lymphs (auto) 1.30 Nucleated RBC % 0.1 PT 13.9 INR 1.1 APTT 31.6 Radiography Diagnostic Testing: Clinical Impression(s) from Imaging Studies Brain CT 09/15/21 02:58 ADDENDUM: 09/15/21 0325 Rhythm Strip Rhythm Strip: Sinus Rhythm Rate: 96 EKG Initial EKG: Attestation: I personally reviewed and interpreted this EKG as follows: Interpretation: Sinus Rhythm and No Acute Injury Pattern Comments: Normal sinus rhythm. Rate of 96. No acute abnormality. Stroke Documentation Questions Stroke Team Activated: Yes Reviewed Inclusion/Exclusion criteria: Yes Was Patient considered for Endovascular Intervention?: No-CTA not indicated IV Alteplase (t-PA) Administered: No No contraindications for IV Alteplase (t-PA) administration.: No Alteplase (t-PA) risks, benefits, alternative discussed: No Not given: Patient refusal: No Critical Care Time Critical Care Time: Yes Critical care time (excluding procedures): 30-74 minutes, Discussing w/Patient &/or Family/Internet Marketing Manager, Discussing w/Consultants, Arranging Admission or Transfer, Performing Direct Patient Care at Bedside and - (31 min) Discharge Plan Triage Chief Complaint: Neuro S/Sx ED Provider: Angel Thomas Dx/Rx/DC Orders Clinical Impression: Acute intra-cranial hemorrhage, Hemorrhagic stroke, Hypertensive emergency Prescriptions: No Action NK RF: 0 Primary Care Provider: [facility]ica Pabon [facility] [Primary Care Provider] - Disposition Disposition: Acute Care Hospital
[2021-09-15 03:31] LABS: International Normalized Ratio 1.1; Partial Thromboplast Time 31.6 Seconds (24.1-36.2); Prothrombin Time (Protime)PT. 13.9 SECONDS (11.7-14.9)
[2021-09-15 03:32] LABS: Absolute Neutrophil Count 10.9 X10^3/uL (2.0-7.7); Basophil# 0.07 X10^3/uL; Basophil% 0.5 % (0-1); Eosinophil# 0.03 X10^3/uL; Eosinophils% 0.2 % (0-5); Hematocrit 41.1 % (37-47); Hemoglobin 13.4 g/dL (12.0-15.0); Lymphocyte % 9.7 % (19-41); Mean Corp Hgb Conc 32.6 g/dL (32-36); Mean Corpuscular Hgb 31.6 pg (27.0-32.0); Mean Corpuscular Volume 96.9 fL (81-99); Mean Platelet Vol. 10.2 fl (6.2-12.0); Monocyte# 0.71 X10^3/uL; Monocyte% 5.3 % (0-10); NRBC Flagged by Analyzer 0.1 % (0-5); Neutrophil % 81.5 % (47-70); Platelet Count 280 K/mm3 (150-450); Red Blood Count 4.24 M/mm3 (4.2-5.4); White Blood Count 13.4 K/mm3 (4.4-11.0)
--- NOTE | 2021-09-15 03:54 | ED.RN ---
Patient still talking and asking about her vitals. Will continue to monitor.
[2021-09-15 04:09] LABS: Anion Gap 9 (5-15); BUN 41 mg/dL (7-18); BUN/Creat Ratio 27.7 RATIO (10-20); Calcium,Total 8.3 mg/dL (8.5-10.1); Chloride 105 mmol/L (98-107); Creatinine, Serum 1.48 mg/dL (0.55-1.02); EST Glomerular Filtration Rate 39 mL/min (>60); Est Glom Filt Rate - Afr Amer 47 mL/min (>60); Estimated Creatinine Clearance 31.62 ml/min; Glucose 126 mg/dL (74-106); Potassium 3.8 mmol/L (3.5-5.1); Sodium Level 138 mmol/L (136-145); Troponin-I HS 19 pg/mL (3.0-54.0)
== END 2021-09-15 04:28 | disposition short-term general hospital (02) ==
PROVIDERS: Emergency Provider Emergency Medicine; Visit Provider Emergency Medicine
DX: I62.9 Nontraumatic intracranial hemorrhage, unspecified (principal); I16.1 Hypertensive emergency; F17.210 Nicotine dependence, cigarettes, uncomplicated; Z59.00 Homelessness unspecified
CPT/HCPCS: 51702; 70450; 71045; 80048; 84484; 85025; 85610; 85730; 87811; 93005; 96365; 99285; J7040; J7050